=== PATIENT | female | born 1970 | race Caucasian/White ===

== ENCOUNTER 2019-05-25 10:47 | Emergency (ER) | payer OTHER ==
[2019-05-25 11:09] VITALS: BP 132/81
--- NOTE | 2019-05-25 11:29 | UC ---
Knee Pain HPI - HPI Summary HPI Summary: Patient is a 48yo female presenting with right knee pain after dropping a 50lb bag of flour on her knee yesterday at work. Stated her pain was "really bad" when it happened but that she was able to continue walking on it. She then woke up last night when she felt her knee "pop." She got up and was unable to put any weight on her leg or straighten it out. Today she is able to limp and put some weight on that leg but notes significant pain still when trying to straighten it. Thinks she might have dislocated her patella. She notes no pain at rest. Denies ankle or hip pain. Denies numbness or tingling. Denies any prior knee injury or surgery. Denies taking anything for pain relief. - History of Current Complaint Chief Complaint: UCLowerExtremity Stated Complaint: KNEE INJURY Time Seen by Provider: 05/25/19 11:14 Hx Obtained From: Patient Hx Last Menstrual Period: 05/18/19 Onset/Duration: Sudden Onset, Lasting Hours Severity Initially: Severe Severity Currently: Mild Pain Intensity: 5 - with right leg extension Pain Scale Used: 0-10 Numeric Character: Sharp Associated Signs And Symptoms: Positive: Swelling. Negative: Bruising - Allergies/Home Medications Allergies/Adverse Reactions: Allergies Allergy/AdvReac Type Severity Reaction Status Date / Time No Known Allergies Allergy Verified 05/25/19 11:03 Home Medications: Home Medications Loratadine 10 mg PO DAILY 05/25/19 [History Confirmed 05/25/19] PMH/Surg Hx/FS Hx/Imm Hx - Surgical History Surgical History: None - Family History Known Family History: Positive: None - Social History Alcohol Use: Occasionally Substance Use Type: Marijuana Substance Use Comment - Amount & Last Used: occasional Smoking Status (MU): Current Some Day Smoker Type: Cigarettes Amount Used/How Often: socially Have You Smoked in the Last Year: No When Did the Patient Quit Smoking/Using Tobacco: 2010 Review of Systems All Other Systems Reviewed And Are Negative: Yes Constitutional: Positive: Negative Skin: Positive: Negative. Negative: Bruising Respiratory: Positive: Negative Cardiovascular: Positive: Negative Motor: Positive: Decreased ROM. Negative: Weakness Neurovascular: Negative: Decreased Sensation, Decreased Pulses Musculoskeletal: Positive: Arthralgia, Decreased ROM, Edema. Negative: Calf Tenderness Neurological: Positive: Negative. Negative: Paresthesia, Numbness Psychological: Positive: Negative Physical Exam Triage Information Reviewed: Yes Appearance: Well-Appearing, No Pain Distress, Well-Nourished Vital Signs: Initial Vital Signs Temp 97.6 F 05/25/19 11:04 Pulse 85 05/25/19 11:04 Resp 16 05/25/19 11:04 BP 132/81 05/25/19 11:04 Pulse Ox 98 05/25/19 11:04 Vital Signs Reviewed: Yes Eyes: Positive: Conjunctiva Clear ENT: Positive: Hearing grossly normal Neck exam: Normal Neck: Positive: Supple Respiratory Exam: Normal Respiratory: Positive: Lungs clear, Normal breath sounds, No respiratory distress, No accessory muscle use Cardiovascular Exam: Normal Cardiovascular: Positive: RRR, Pulses Normal, Brisk Capillary Refill Musculoskeletal: Positive: Strength Intact, No Edema, ROM Limited @ - right leg extension limited due to pain., Other: - mild tenderness to palpation to quadriceps tendon and superior aspect of patella. Neurological Exam: Other - sensation grossly intact Neurological: Positive: Alert Skin Exam: Normal - no bruising noted Diagnostics - Radiology right knee xray Radiology Interpretation Completed By: Radiologist Summary of Radiographic Findings: IMPRESSION: OSTEOARTHRITIS. NO ACUTE OSSEOUS INJURY. IF SYMPTOMS PERSIST, RECOMMEND REPEAT IMAGING. Knee Pain Course/Dx - Course Course Of Treatment: Discussed negative xray findings with patient. Patient instructed to use rest, ice, heat, elevation, and use the devan wrap for compression to help alleviate pain symptoms. Patient may use crutches if having difficulty bearing weight. Instructed to use OTC analgesics as directed for pain relief. If symptoms persist or worsen, patient instructed to follow up with the orthopedic referral given. Patient voiced understanding and agreed to treatment plan. - Differential Dx/Diagnosis Provider Diagnosis: Right knee pain Discharge ED - Sign-Out/Discharge Documenting (check all that apply): Patient Departure All imaging exams completed and their final reports reviewed: Yes - Discharge Plan Condition: Stable Disposition: HOME Patient Education Materials: Knee Pain (ED) Referrals: Laron Peres MD [Primary Care Provider] - Nelson Bernard MD [Medical Doctor] - If Needed Additional Instructions: As discussed, your xrays did not show any fractures. Rest, ice, heat, elevate, and use the devan warp for compression to help alleviate pain symptoms. You may use crutches if you have difficulty putting weight on your leg. Use ibuprofen as directed for pain relief. If symptoms persist or worsen, follow up with the orthopedic referral as listed below. - Billing Disposition and Condition Condition: STABLE Disposition: Home
== END 2019-05-25 12:40 | disposition home or self-care (01) ==
LOC: UCEAST 10:47
DX: M25.561 Pain in right knee (principal); F17.210 Nicotine dependence, cigarettes, uncomplicated
CPT/HCPCS: 99212; G0463

== ENCOUNTER 2019-06-17 09:56 | Emergency (ER) | payer SELFPAY ==
[2019-06-17] MEDS ORDERED: Ibuprofen TAB* 600 MG PO ONE (10:23)
--- OUTSIDE RECORDS SUMMARY | 2019-06-17 10:38 | XMS REPORT | Summary of Care ---
:1970 Author Organization [facility] Address [address] [address] Care Team Providers Name Role Phone Ja Laron Primary Care Provider Reason for Visit Reason Comments Medication Check fluoxetine dosage Flu Vaccine Encounter Details Date Type Department Care Team Description 06/17/2019 Office Visit [place] Citlali Martinez, Depression, unspecified depression type (Primary Dx); Practice INS[employer]ANCE [employer]K [employer] Anxiety; [address] [facility] [place] [address] [place] [address] [phone] Allergies Active Allergy Reactions Severity Noted Date Comments Codeine GI Reaction 11/17/2014 documented as of this encounter (statuses as of 06/17/2019) Medications Medication Sig Dispensed Refills Start Date End Date Status Loratadine (CLARITIN) Take by mouth 0 Active 10 MG Oral Cap DAILY. triamcinolone Apply to rash 45 g 2 06/04/2018 Active (KENALOG,ARISTOCORT) twice a day as 0.1 % Apply externally needed for up to 2 Cream weeks methylphenidate Take 1-2 Tabs by 30 Tab 0 07/21/2018 Active (CONCERTA) 18 MG Oral mouth DAILY. Max Tab CR Daily Amount: 36 mg. fluoxetine (PROZAC) 20 Take 2 Caps by 180 Cap 1 02/25/2019 Active MG Oral Cap mouth DAILY. Lost her last bottle . Needs replacement documented as of this encounter (statuses as of 06/17/2019) Active Problems Problem Noted Date Sprain of lumbar region 05/29/2011 Sprain of neck 04/12/2011 Displacement of lumbar intervertebral disc without myelopathy 03/22/2011 PMS (premenstrual syndrome) ADD (attention deficit disorder) BMI 32.0-32.9,adult Overview: This patient's BMI This patient's BMI has been calculated and is above average, and BMI management plan is completed. General patient education discussion including: weight loss link to reduction of r isk factors for cardiac and other diseases, importance of long-term maintenance treatment in weight loss, and accomplish with exercise as tolerated and diet control documented as of this encounter (statuses as of 06/17/2019) Immunizations Name Administration Dates Next Due Influenza (IM) Preservative Free 06/17/2019 TDAP Vaccine 04/04/2014 TETANUS & DIPHTHERIA TOXOID (OVER 7 YRS) 01/07/2004 documented as of this encounter Social History Tobacco Use Types Packs/Day Years Used Date Former Smoker Cigarettes Smokeless Tobacco: Never Used Comments: quit 2005 Alcohol Use Drinks/Week oz/Week Comments No 0 Standard drinks or equivalent 0.0 1-6 beers a week Sex Assigned at Date Recorded Not on file Job Start Date Occupation Industry Not on file Not on file Not on file Travel History Travel Start Travel End No recent travel history available. documented as of this encounter Last Filed Vital Signs Vital Sign Reading Time Taken Comments Blood Pressure 130/78 06/17/2019 8:10 AM EDT Pulse 88 06/17/2019 8:10 AM EDT Temperature - - Respiratory Rate - - Oxygen Saturation 97% 06/17/2019 8:10 AM EDT Inhaled Oxygen Concentration - - Weight 94.8 kg (209 lb) 06/17/2019 8:10 AM EDT Height 170.2 cm (5' 7") 06/17/2019 8:10 AM EDT Body Mass Index 32.73 06/17/2019 8:10 AM EDT documented in this encounter Patient Instructions Patient InstructionsCitlali Martinez FNP - 06/17/2019 8:00 AM EDTIncrease Prozac to 60 mg a day Call if new Prescription needed Schedule follow up with Dr Peres documented in this encounter Progress Notes Citlali Martinez FNP - 06/17/2019 8:00 AM EDT PATIENT: Malinda Morocho : 1970 DATE OF SERVICE: 06/17/2019 CHIEF COMPLAINT: Chief Complaint Patient presents with Medication Check fluoxetine dosage Flu Vaccine Subjective HISTORY OF PRESENT ILLNESS: Malinda Morocho is a 48-y.o. female. HPI Increased depression and anxiety in past few months. Taking 40 mg Prozac a day Past Medical History: Diagnosis Date ADD (attention deficit disorder) Beta thalassemia trait BMI 32.0-32.9,adult Gluten intolerance Herniated disc PMS (premenstrual syndrome) Urticaria 2017 Family History Problem Relation Age of Onset Diabetes Father Ovarian Cancer Maternal Grandmother Diabetes Maternal Grandmother Lung Cancer Paternal Grandfather smoker Thyroid Sister both hypo Thyroid Father hypo Thyroid Mother hypo Current Outpatient Medications Medication Sig fluoxetine (PROZAC) 20 MG Oral Cap Take 2 Caps by mouth DAILY. Lost her last bottle . Needs replacement Loratadine (CLARITIN) 10 MG Oral Cap Take by mouth DAILY. methylphenidate (CONCERTA) 18 MG Oral Tab CR Take 1-2 Tabs by mouth DAILY. Max Daily Amount: 36 mg. triamcinolone (KENALOG,ARISTOCORT) 0.1 % Apply externally Cream Apply to rash twice a day as needed for up to 2 weeks No current facility-administered medications for this visit. Allergies Allergen Reactions Codeine GI Reaction Social History Socioeconomic History Marital status: Single Spouse name: Not on file Number of children: Not on file Years of education: Not on file Highest education level: Not on file Occupational History Not on file Social Needs Financial resource strain: Not on file Food insecurity: Worry: Not on file Inability: Not on file Transportation needs: Medical: Not on file Non-medical: Not on file Tobacco Use Smoking status: Former Smoker Types: Cigarettes Smokeless tobacco: Never Used Tobacco comment: quit 2006 Substance and Sexual Activity Alcohol use: No Alcohol/week: 0.0 standard drinks Comment: 1-6 beers a week Drug use: No Sexual activity: Not Currently Lifestyle Physical activity: Days per week: Not on file Minutes per session: Not on file Stress: Not on file Relationships Social connections: Talks on phone: Not on file Gets together: Not on file Attends yarsanism service: Not on file Active member of club or organization: Not on file Attends meetings of clubs or organizations: Not on file Relationship status: Not on file Intimate partner violence: Fear of current or ex partner: Not on file Emotionally abused: Not on file Physically abused: Not on file Forced sexual activity: Not on file Other Topics Concern Not on file Social History Narrative Not on file Over the last 2 weeks, have you been feeling down, depressed, anxious, or hopeless?: 0 Over the past 2 weeks, have you felt little interest or pleasure in doing things ?: 0 REVIEW OF SYSTEMS: Review of Systems Constitutional: Negative for malaise/fatigue and weight loss. Psychiatric/Behavioral: Positive for depression. Negative for hallucinations, substance abuse and suicidal ideas. The patient is nervous/anxious. Objective PHYSICAL EXAM: VITALS: BP 130/78 (BP Location: Left arm, Patient Position: Sitting) | Pulse 88 | Ht 5' 7" (1.702m) | Wt 209 lb (94.8 kg) | SpO2 97% | BMI 32.73 kg/m Body mass index is 32.73 kg/m. Physical Exam Vitals signs reviewed. Constitutional: Appearance: Normal appearance. Skin: General: Skin is warm and dry. Neurological: Mental Status: She is alert and oriented to person, place, and time. Psychiatric: Mood and Affect: Mood normal. Thought Content: Thought content does not include homicidal or suicidal plan. Comments: Was in counseling until lost job in March - is currently working but has not re established with counselor. Increased periods of anxiety and depression - she feels associated with life stress - job change, friends . Asking to increase Prozac. Meds reviewed - will increase Prozac to 60 mg - has new fill at pharmacy so will try it before new Rx written Counseling advised Also advised to follow up with PCP ASSESSMENT / IMPRESSION: ICD-9-CM ICD-10-CM 1. Depression, unspecified depression type 311 F32.9 2. Anxiety 300.00 F41.9 3. Flu vaccine need V04.81 Z23 [place] FLU VACCINE PRES FREE 6MOS+ Plan Increase Prozac to 60 mg a day Call if new Prescription needed Schedule follow up with Dr Peres 25 minutes spent with patient, greater than 50% of time in bvas-cm-oxsy counseling and discussion ofsx and medications Author: JANY Araujo 06/17/2019 08:53 documented in this encounter Plan of Treatment Health Maintenance Due Date Last Done Comments PAP SMEAR 1970 DIABETES SCREENING 1989 LIPID DISORDER SCREENING 1989 INFLUENZA VACCINE (#1) 2019 MAMMOGRAM (SCREENING) 06/23/2019 06/23/2018, 06/10/2017, 06/10/2017 DEPRESSION SCREENING 06/17/2020 06/17/2019 HPV IMMUNIZATION SERIES Aged Out No longer eligible based on patient's age to complete this topic MENINGOCOCCAL VACCINE IMM Aged Out No longer eligible based on patient's age to complete this topic PNEUMOCOCCAL 0-64 YRS Aged Out No longer eligible based on patient's age to complete this topic documented as of this encounter Goals Goal Patient Goal Associated Recent Patient-Stated? Author Type Problems Progress Depression Depression No Michael, roman (PHQ-9) Nirali total score < 5 Note: This is an individualized treatment (depression) goal for Malinda Morocho: Displayed above is your goal for a depression screening (PHQ-9) score that would indicate good control of your depression. Keep a regular sleep schedule Lifestyle No Nirali Rodriguez MD Note: This is an individualized lifestyle goal for Malinda Morocho: Please maintain a regular sleep schedule. This may help with some symptoms of depression. Unit - lb < 180 Result Component No Laron Peres MD Take all prescribed medications as Self-management No Nirali Rodriguez MD directed Note: This is an individualized self-management goal for Malinda Morocho: Please take all prescribed medications as directed. 1. Do not skip doses. If you cannot afford your medications, talk with your doctor. 2. Use a pill reminder system such as a pill box if needed. Your pharmacist can help you with this. 3. Contact your Pharmacy 5 days before your medication runs out. If you cannot take your medications for any reasons, talk with your doctor. 4. Please bring all of your medication bottles and inhalers (or a list of all your medications/inhalers) with you to every visit. Potential barriers to meeting all of your care plan goals will continue to be addressed on an ongoing basis. documented as of this encounter Results Not on filedocumented in this encounter Visit Diagnoses Diagnosis Depression, unspecified depression type - Primary Anxiety Anxiety state, unspecified Flu vaccine need Need for prophylactic vaccination and inoculation against influenza documented in this encounter Insurance Payer Benefit Plan / Subscriber ID Effective Dates Phone Address Type Group ESSIE SCOTT xxxxxxxxxxxx 2019-Present Essie DAVIS PPO (Home) [address] [phone] [place], [place] (Work) [id number] documented as of this encounter
[2019-06-17 11:39] VITALS: BP 146/96
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
== END 2019-06-17 11:35 | disposition home or self-care (01) ==
LOC: ED 09:56
DX: M79.605 Pain in left leg (principal); V48.5XXA Car driver injured in noncollision transport accident in traffic accident, initial encounter; Y92.410 Unspecified street and highway as the place of occurrence of the external cause; Z87.891 Personal history of nicotine dependence; Z79.899 Other long term (current) drug therapy
CPT/HCPCS: 99281

== ENCOUNTER 2019-06-19 19:56 | Emergency (ER) | payer OTHER ==
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
[2019-06-19] MEDS ORDERED: oxyCODONE TAB* 5 MG TAB PO ONE (22:00)
[2019-06-20 00:30] VITALS: BP 146/93
== END 2019-06-19 22:45 | disposition home or self-care (01) ==
LOC: ED 19:56
DX: M79.652 Pain in left thigh (principal); T14.8XXA Other injury of unspecified body region, initial encounter; Z87.891 Personal history of nicotine dependence; V48.5XXA Car driver injured in noncollision transport accident in traffic accident, initial encounter; Y92.9 Unspecified place or not applicable; R60.0 Localized edema
CPT/HCPCS: 99282; A9270-GY